=== PATIENT | male | born 1990 | race African-American/Black ===

== ENCOUNTER 2017-03-28 14:56 | Emergency (ER) | payer SELFPAY ==
[~2017-03-28] VITALS: Ht 182.9 cm; Wt 84.0 kg
[2017-03-28 15:11] VITALS: Ht 182.9 cm; Wt 84.0 kg
[2017-03-28] MEDS ORDERED: SODIUM CHLORIDE 0.9% 1000ML 1,000 ML IV STA (16:43)
[2017-03-28] MEDS ORDERED: PROCHLORPERAZINE 5 MG/ML 2 ML VIAL IV STA (16:43)
[2017-03-28] MEDS ORDERED: KETOROLAC TROMETHAMINE 30 MG/ML VIAL IV STA (16:43)
[2017-03-28] MEDS ORDERED: DiphenhydrAMINE HCL 50 MG/ML VIAL IV STA (16:43)
[2017-03-28 16:59] VITALS: TEMP 36.9
[2017-03-28] MEDS ORDERED: ONDA4TAB10 SL (18:18)
--- NOTE | 2017-03-28 18:18 | EMERGENCY ROOM VISIT NOTE ---
History First contact with patient: 16:10 Chief Complaint: HEADACHE Stated Complaint: MIGRAINE, DEHYDRATED History of Present Illness The patient is a 26 year old male who presents to the Emergency Room with complaints of a headache. The patient states that he has had a headache since this morning. He has associated vomiting. He feels like he may be dehydrated. He rates his discomfort was a 9/10 at its worst, but the headache is improving slightly and he now rates his discomfort a 6/10. He has had a gradual onset of pain since this morning. He states he has a history of migraines and they're triggered by physical activity and not getting enough sleep. The patient states this is not the worst headache of his life. [place] is from out of town but [place] here frequently for the [employer]. He believes he has had imaging of his head done in the past. He denies any numbness, weakness, blurred vision, slurred speech, neck pain/stiffness, recent illness or fevers/chills. He has not taken any medications at home for his symptoms. Review of Systems A complete 10 point review of systems was reviewed with the patient with pertinent positives and negatives as per history of present illness. All else were negative. Past Medical/Surgical History Medical Problems: (1) No pertinent past medical history Social History Smoking Status: Current Every Day Smoker Alcohol Use: none Drug Use: none Marital Status: single Housing Status: lives alone Occupation Status: employed Current/Historical Medications Scheduled Ondasetron Odt (Zofran Odt), 4 MG SL Q6H Physical Exam Vital Signs Date Time Temp Pulse Resp B/P (MAP) Pulse Ox O2 Delivery O2 Flow Rate FiO2 03/28/17 18:31 72 18 137/76 100 03/28/17 16:59 36.9 88 18 124/72 100 03/28/17 15:11 36.9 88 18 142/77 100 Physical Exam VITALS: Vitals are noted on the nurse's note and reviewed by myself. Vital signs stable. GENERAL: This is a 26-year-old male, in no acute distress, nondiaphoretic, well- developed well-nourished. HEAD: Normocephalic atraumatic. EARS: External auditory canals clear, tympanic membranes pearly sullivan without erythema or effusion bilaterally. EYES: Pupils equal round and reactive to light and accommodation. Conjunctivae without injection, sclerae without icterus. Extraocular movements intact. MOUTH: Mucous membranes moist. NECK: Supple without nuchal rigidity. No lymphadenopathy. No meningismus. HEART: Regular rate and rhythm without murmurs gallops or rubs. LUNGS: Clear to auscultation bilaterally without wheezes, rales or rhonchi. MUSCULOSKELETAL: Full range of motion throughout. Strength 5/5 throughout. NEURO: Patient was alert and oriented to person place and time. Normal sensation to light and sharp touch. Deep tendon reflexes 2+ throughout. No focal neurological deficits. Medical Decision & Procedures Medications Administered Medications (Trade) Dose Ordered Sig/Cedrick Route Start Time Stop Time Status Last Admin Dose Admin Sodium Chloride 1,000 ml @ 999 mls/hr Q1H1M STAT IV 03/28/17 16:43 03/28/17 17:43 DC 03/28/17 16:43 999 MLS/HR Prochlorperazine Edisylate (Compazine Inj) 10 mg NOW STAT IV 03/28/17 16:43 03/28/17 16:45 DC 03/28/17 16:43 10 MG Diphenhydramine HCl (Benadryl Inj) 25 mg NOW STAT IV 03/28/17 16:43 03/28/17 16:45 DC 03/28/17 16:43 25 MG Ketorolac Tromethamine (Toradol Inj) 30 mg NOW STAT IV 03/28/17 16:43 03/28/17 16:45 DC 03/28/17 16:43 30 MG Ondansetron HCl (ZOFRAN ODT 4MG Home Pack) 1 homepack UD ONCE PO 03/28/17 18:30 03/28/17 18:31 DC 03/28/17 18:30 1 HOMEPACK Medical Decision The differential diagnosis includes acute intracranial bleed, meningitis, encephalitis, mass or mass effect, sinusitis, infection, tumor, headache, temporal arteritis and carbon monoxide exposure, and migraine. The patient is a 26-year-old male who presents today complaining of a headache the patient reports a history of migraines and states this feels similar. There is no evidence of meningitis or encephalitis on exam. Neuro exam is unremarkable. His PCP is located in [place] and he states this is typically sees for his migraines. The patient was treated with IV Toradol, Benadryl and Compazine with complete resolution of his symptoms. He was encouraged to follow -up with his PCP for further evaluation. He was given a home pack of Zofran and encouraged to try [id number] medications if his headache returns. Based on the patient's presentation and work up, I feel the patient is stable for outpatient treatment. The patient was educated to return to the emergency department for any worsening of their current condition or new/concerning symptoms. He will follow up with his PCP. Medication Reconcilliation Current Medication List: was personally reviewed by me Blood Pressure Screening Patient's blood pressure: Normal blood pressure Impression Primary Impression: Headache Departure Information Dispostion Home / Self-Care Condition GOOD Prescriptions Ondasetron Odt (ZOFRAN ODT) 4 Mg Tab 4 MG SL Q6H for Nausea, #15 TAB Prov: Perla Tinoco .HARSHAL 03/28/17 Referrals No Doctor, Assigned (PCP) Patient Instructions [facility] Additional Instructions You have been prescribed Zofran to be used for any nausea or vomiting. Take as prescribed. For pain control, you can use the following [id number] medicines (if >12 yo): - Regular strength (325mg/tab) Tylenol (acetaminophen) 2 tabs every 4-6 hours as needed. Do not exceed 12 tablets in a 24 hour period. Avoid taking more than 4 grams (4000 mg) of Tylenol per day. This includes any other sources of acetaminophen you may take on a regular basis. - Regular strength (200 mg/tab) Advil (ibuprofen) 1-2 tabs every 4-6 hours as needed. Do not exceed a dose of 3200 mg per day. Rest today and drink plenty of fluids. Follow-up with your primary care provider for further evaluation of your headache. Return to the emergency with any worsening headache, high fevers, neck pain/ stiffness, numbness, weakness or any other new/concerning symptoms.
[2017-03-28] MEDS ORDERED: ONDANSETRON HOME PACK 4MG OD TAB PO ONE (18:30)
[2017-03-28 18:31] VITALS: BP 137/76; PULSE 72; O2SAT 100
== END 2017-03-28 18:52 | disposition home or self-care (01) ==
LOC: C.EDB 14:57
DX: R51 Headache (principal); R11.10 Vomiting, unspecified; F17.200 Nicotine dependence, unspecified, uncomplicated

== ENCOUNTER 2017-11-22 11:46 | Emergency (ER) | payer OTHER ==
[~2017-11-22] VITALS: Ht 182.9 cm; Wt 85.6 kg
[2017-11-22 12:04] VITALS: TEMP 37.5; Ht 182.9 cm; Wt 85.6 kg
[2017-11-22] MEDS ORDERED: ALBUTEROL HFA 8 GM INHALER INH ONE (12:45)
[2017-11-22] MEDS ORDERED: BENZ200C59 PO (12:45)
--- NOTE | 2017-11-22 12:54 | EMERGENCY ROOM VISIT NOTE ---
History First contact with patient: 12:14 Chief Complaint: FLU LIKE SX Stated Complaint: FLU LIKE SYMPTOMS,COLD History of Present Illness The patient is a 27 year old male who presents to the Emergency Room with complaints of a nonproductive cough, runny nose, headache, fever and chills. The patient reports that her symptoms started Wednesday morning with a scratchy throat that then developed into a runny nose and nonproductive cough yesterday. The patient denies any myalgias, nausea, vomiting, diarrhea or urinary symptoms. The patient also denies any prior history of asthma. The patient reports that he is in the [employer], and needs to be feeling better by this weekend. The patient's primary care provider is in [place]. He does not have a local doctor. He rates his overall discomfort a 6 out of 10. Review of Systems 10 system review was performed and was negative except for pertinent positives and negatives as indicated in history of present illness Past Medical/Surgical History Medical Problems: (1) No pertinent past medical history Medical Problems: (1) No pertinent past medical history Surgical Problems: (1) No history of previous surgery Family History No significant family history Unremarkable Social History Smoking Status: Current Every Day Smoker Alcohol Use: none Drug Use: none Marital Status: single Housing Status: lives alone Occupation Status: employed Current/Historical Medications Scheduled PRN Benzonatate (Tessalon Perles), 200 MG PO TID PRN for Cough Physical Exam Vital Signs Date Time Temp Pulse Resp B/P (MAP) Pulse Ox O2 Delivery O2 Flow Rate FiO2 16/18 12:04 37.5 94 18 124/70 98 Room Air Physical Exam CONSTITUTIONAL: Healthy and well nourished. Alert and oriented X 3 with positive affect. Patient has a mild nonproductive cough, and does not appear in any acute respiratory distress. HEENT: Normocephalic, atraumatic. Pupils equal, round and reactive. She has mild bulging of the TMs without air-fluid levels or erythema. No rhinorrhea. OROPHARYNX: Minimal posterior pharyngeal erythema without tonsillar hypertrophy or exudates. NECK: Full active range of motion without discomfort. LYMPHATICS: No cervical chain adenopathy. RESPIRATORY: Clear to auscultation bilaterally with no wheezing, crackles, rhonchi or stridor. CARDIOVASCULAR: Regular rate and rhythm with no murmurs, rubs or gallops. GASTROINTESTINAL: Bowel sounds present in all quadrants. Soft and nontender to palpation. MUSCULOSKELETAL: Full range of motion of all joints without discomfort. INTEGUMENTARY: No rash or other significant dermatologic conditions noted. NEUROLOGIC: No focal neurologic deficits noted. Medical Decision & Procedures ED Course Patient history and physical exam were performed. Nurse's notes were reviewed. Vital signs were reviewed and were normal with an O2 saturation of 98% on room air. Patient is also currently afebrile and not tachycardic. The patient was advised that his symptoms are likely secondary to a viral upper respiratory infection. The patient was advised that antibiotics do not kill viruses. The patient was dispensed a Ventolin metered-dose inhaler and AeroChamber, with instructions for use. He received a prescription for Tessalon Perles as needed for additional cough relief. He was encouraged to take ibuprofen or Tylenol as needed for pain and fever, and follow-up with his PCP if symptoms are not improving within the next week. An educational handout was provided regarding viral upper respiratory infections. The patient was happy with plan of care, and voiced understanding of all discharge instructions. Medical Decision Medication Reconcilliation Current Medication List: was personally reviewed by tx Blood Pressure Screening Patient's blood pressure: Normal blood pressure Impression Primary Impression: Viral URI with cough Departure Information Dispostion Home / Self-Care Prescriptions Benzonatate (TESSALON PERLES) 200 Mg Cap 200 MG PO TID Y for Cough, #30 CAP Prov: Marko Myrick PA 11/22/17 Forms HOME CARE DOCUMENTATION FORM, IMPORTANT VISIT INFORMATION Patient Instructions My [facility], ED URI Viral Additional Instructions You likely have a viral upper respiratory infection that will not respond to antibiotics. Administer albuterol 2 puffs every 4 hours for cough. You have been provided a prescription for Tessalon Perles if needed for worse cough. Ibuprofen or Tylenol if needed for fever. Follow-up with your family doctor if symptoms are not improving within a week. Return to the emergency department for any significantly worsening symptoms including shortness of breath or increasing fever.
[2017-11-22 13:02] VITALS: BP 134/80; PULSE 82; O2SAT 99
== END 2017-11-22 13:04 | disposition home or self-care (01) ==
LOC: C.EDB 11:47 → C.EDC 13:04
DX: J06.9 Acute upper respiratory infection, unspecified (principal); R05 Cough; R51 Headache; R50.9 Fever, unspecified